=== PATIENT | male | born 1970 | race American Indian/Alaskan Native ===

== ENCOUNTER 2017-10-12 21:23 | Emergency (ER) | payer MEDICAID ==
[2017-10-12 21:50] VITALS: TEMP 99.1
[2017-10-12 21:51] VITALS: BMI 36.9
--- NOTE | 2017-10-12 22:21 | ED PDOC ---
Arrival/HPI - General Chief Complaint: Dizziness/Lightheaded Time Seen by Provider: 10/12/17 21:52 Historian: Patient - History of Present Illness Narrative History of Present Illness (Text): 10/12/17 22:21 47 year old male, whose past medical history includes hypertension and hyperlipidemia, presents to the emergency department complaining of a lightheaded sensation that began today. Patient states he believes his blood pressure and cholesterol are elevated due to eating a tuna sandwich and drinking water with lemon. Patient's was worried so they came in to the ER for evaluation. Patient denies any fever, chills, chest pain, shortness of breath, nausea, vomiting, diarrhea, urinary symptoms, back pain, neck pain, headache, dizziness, or any other complaints. PMD: Dr. Wilson Time/Duration: Other (today) Symptom Onset: Gradual Activities at Onset: Light Context: Home Past Medical History - Provider Review Nursing Documentation Reviewed: Yes - Infectious Disease Hx of Infectious Diseases: None - Cardiac Hx Cardiac Disorders: Yes Hx Hypertension: Yes - Pulmonary Hx Respiratory Disorders: No - Neurological Hx Neurological Disorder: No - HEENT Hx HEENT Disorder: No - Renal Hx Renal Disorder: No - Endocrine/Metabolic Hx Endocrine Disorders: No - Hematological/Oncological Hx Blood Disorders: No - Integumentary Hx Dermatological Disorder: No - Musculoskeletal/Rheumatological Hx Musculoskeletal Disorders: No - Gastrointestinal Hx Gastrointestinal Disorders: No - Genitourinary/Gynecological Hx Genitourinary Disorders: No - Psychiatric Hx Psychophysiologic Disorder: No Hx Substance Use: No Family/Social History - Physician Review Nursing Documentation Reviewed: Yes Family/Social History: No Known Family HX Smoking Status: Never Smoked Hx Alcohol Use: Yes Frequency of alcohol use: Socially Hx Substance Use: No Allergies/Home Meds Allergies/Adverse Reactions: Allergies shellfish derived Allergy (Verified 10/12/17 21:55) ITCHING tomato Allergy (Verified 10/12/17 21:51) ITCHING Home Medications: Home Meds Medication Instructions Recorded Confirmed Unobtainable 10/12/17 10/12/17 Review of Systems - Physician Review All systems were reviewed & negative as marked: Yes - Review of Systems Constitutional: absent: Fevers, Other (Chills) Respiratory: absent: SOB Cardiovascular: absent: Chest Pain Gastrointestinal: absent: Diarrhea, Nausea, Vomiting Genitourinary Male: absent: Dysuria, Frequency, Hematuria Musculoskeletal: absent: Back Pain, Neck Pain Neurological: Other (lightheaded sensation ). absent: Headache, Dizziness Physical Exam Vital Signs Reviewed: Yes Vital Signs Temp Pulse Resp BP Pulse Ox 10/12/17 22:37 89 17 140/62 100 10/12/17 21:50 99.1 F 95 H 18 145/84 97 Temperature: Afebrile Blood Pressure: Normal Pulse: Regular Respiratory Rate: Normal Appearance: Positive for: Well-Appearing, Non-Toxic, Comfortable Pain Distress: None Mental Status: Positive for: Alert and Oriented X 3 - Systems Exam Head: Present: Atraumatic, Normocephalic Pupils: Present: PERRL Extroacular Muscles: Present: EOMI Conjunctiva: Present: Normal Mouth: Present: Moist Mucous Membranes Neck: Present: Normal Range of Motion Respiratory/Chest: Present: Clear to Auscultation, Good Air Exchange. No: Respiratory Distress, Accessory Muscle Use Cardiovascular: Present: Regular Rate and Rhythm, Normal S1, S2. No: Murmurs Abdomen: No: Tenderness, Distention, Peritoneal Signs Back: Present: Normal Inspection Upper Extremity: Present: Normal Inspection. No: Cyanosis, Edema Lower Extremity: Present: Normal Inspection. No: Edema Neurological: Present: GCS=15, CN II-XII Intact, Speech Normal Skin: Present: Warm, Dry, Normal Color. No: Rashes Psychiatric: Present: Alert, Oriented x 3, Normal Insight, Normal Concentration Medical Decision Making ED Course and Treatment: 10/12/17 22:21 Impression: 47 year old male presents complaining of feeling lightheaded possibly associated with his elevated blood pressure and cholesterol. Plan: -- Reassess and disposition Progress Notes: discussed with patient about his current stable blood pressure in the Emergency room. Patient is in no acute distress and denies dyspnea, chest pain, headache, dizziness, decreased UOP, or any other symptoms. No clinical workup necessary at this time. I have discussed the plan with the patient, who expresses understanding. Patient in agreement with plan to be discharged home. Patient is stable for discharge. Patient was instructed to follow up with PMD or return if symptoms worsen or new concerning symptoms arise. - Scribe Statement The provider has reviewed the documentation as recorded by the Kiran Taylor Provider Scribe Attestation: All medical record entries made by the Scribe were at my direction and personally dictated by me. I have reviewed the chart and agree that the record accurately reflects my personal performance of the history, physical exam, medical decision making, and the department course for this patient. I have also personally directed, reviewed, and agree with the discharge instructions and disposition. Disposition/Present on Arrival - Present on Arrival Any Indicators Present on Arrival: No History of DVT/PE: No History of Uncontrolled Diabetes: No Urinary Catheter: No History of Decub. Ulcer: No History Surgical Site Infection Following: None - Disposition Have Diagnosis and Disposition been Completed?: Yes Diagnosis: Hypertension, Lightheadedness Disposition: HOME/ ROUTINE Disposition Time: 22:37 Condition: GOOD Discharge Instructions (ExitCare): High Blood Pressure (DC) Additional Instructions: CHANO GIFFORD, thank you for letting us take care of you today. Your provider was Rubi Hicks MD and you were treated for PRESSURES HIGH. The emergency medical care you received today was directed at your acute symptoms. If you were prescribed any medication, please fill it and take as directed. It may take several days for your symptoms to resolve. Return to the Emergency Department if your symptoms worsen, do not improve, or if you have any other problems. Please contact your doctor or call one of the physicians/clinics you have been referred to that are listed on the Patient Visit Information form that is included in your discharge packet. Bring any paperwork you were given at discharge with you along with any medications you are taking to your follow up visit. Our treatment cannot replace ongoing medical care by a primary care provider outside of the emergency department. Thank you for allowing the [facility] team to be part of your care today. If you had an X-Ray or CT scan: A Radiologist will review the ED reading if any change in treatment is needed we will contact you. If you had a blood, urine, or wound culture: It will take several days for the results, if any change in treatment is needed we will contact you. If you had an STI test: It will take 48 hours for the results. Please call after 1 week if you have not heard back. Referrals: Amanda Wilson MD [Primary Care Provider] - Follow up with primary Forms: [employer] (Macedonian)
[2017-10-13 00:06] VITALS: BP 140/62; PULSE 89; RESP 17; O2SAT 100
== END 2017-10-12 22:37 | disposition home or self-care (01) ==
LOC: MERGE 21:23 → ED 21:23
DX: I10 Essential (primary) hypertension (principal); R42 Dizziness and giddiness; E78.5 Hyperlipidemia, unspecified